=== PATIENT | female | born 1940 | race Caucasian/White ===

== ENCOUNTER 2017-09-17 12:27 | Emergency (ER) | payer MEDICARE, MEDICAID ==
[~2017-09-17] VITALS: Ht 170.2 cm; Wt 65.0 kg
[~2017-09-17 12:27] MED LIST: CHOL100046 PO; HYDR25SU48 RC; METF500T7 PO; SIMV20TA5 PO; TEMA30CA5 PO; VITA-268 PO
[2017-09-17 12:29] VITALS: BP 136/99
[2017-09-17] MEDS ORDERED: BUPIVAcaine/PF 2.5 mg/ml (0.25%) 30ml vial IJ ONE (12:50)
[2017-09-17] MEDS ORDERED: TETanus/Pertussis (Acell)/Diphther VAC/PF (Tdap-Adult) 0.5ml syringe IM ONE (12:50)
[2017-09-17] MEDS ORDERED: bacitracin 15gm ointment TP ONE (12:50)
[2017-09-17] MEDS ORDERED: acetaminophen 325mg tablet PO ONE (12:50)
[2017-09-17] MEDS ORDERED: BUPIVAcaine 0.5% inj/PF 30 ml vial IJ ONE (13:05)
[2017-09-17] MEDS ORDERED: CEPH-572 PO (14:46)
[2017-09-17] MEDS ORDERED: HYDR-3965 PO (14:46)
[2017-09-17] MEDS ORDERED: ONDA4TAB9 PO (14:46)
== END 2017-09-17 15:09 | disposition home or self-care (01) ==
LOC: ER 12:27
DX: S06.0X0A Concussion without loss of consciousness, initial encounter (principal); S62.002A Unspecified fracture of navicular [scaphoid] bone of left wrist, initial encounter for closed fracture; S02.5XXA Fracture of tooth (traumatic), initial encounter for closed fracture; S01.511A Laceration without foreign body of lip, initial encounter; S50.01XA Contusion of right elbow, initial encounter; S80.211A Abrasion, right knee, initial encounter; S80.212A Abrasion, left knee, initial encounter; E11.9 Type 2 diabetes mellitus without complications; Z88.2 Allergy status to sulfonamides; W18.30XA Fall on same level, unspecified, initial encounter; Y93.89 Activity, other specified; Y92.89 Other specified places as the place of occurrence of the external cause; Y99.8 Other external cause status
CPT/HCPCS: 12052; 29125; 73110; 73200; 90471; 90715; 99284; J3490

== ENCOUNTER 2018-06-21 11:06 | Emergency (ER) | payer MEDICARE, MEDICAID ==
[~2018-06-21] VITALS: Ht 170.2 cm; Wt 65.9 kg
[2018-06-21] MEDS ORDERED: HYDROcodone/acetaminophen 5mg/325mg tablet PO ONE (12:05)
[2018-06-21 12:35] VITALS: BP 159/59
--- NOTE | 2018-06-22 18:48 | NUR ---
rec'd call from a friend/family member named Maia [phone] - she stated that the pt was seen on 06/21/18 and supposed to be placed on abx. according to Maia, pt was not d\\c'd with rx - called today and spoke to "a man" and was told that they would call in rx [facility]. 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 Call placed to [facility] to see if there is a need to order abx - he states it was supposed to have been called in this morning. I will call [facility] and make sure they rec'd the call. Rx is for Augmentin 500mg (1 tab BID x 10 days)
== END 2018-06-21 13:01 | disposition home or self-care (01) ==
LOC: ER 11:07
DX: S00.03XA Contusion of scalp, initial encounter (principal); Z98.890 Other specified postprocedural states; Z88.2 Allergy status to sulfonamides; Z79.899 Other long term (current) drug therapy; W18.39XA Other fall on same level, initial encounter; Y93.89 Activity, other specified; Y92.89 Other specified places as the place of occurrence of the external cause; Y99.8 Other external cause status
CPT/HCPCS: 70450; 99284